=== PATIENT | female | born 1950 | race Caucasian/White ===

== ENCOUNTER 2016-10-16 09:17 | Outpatient (CLI) | payer OTHER | END 2016-10-16 17:28 | disposition home or self-care (01) | LOC: SMA 09:17 | PROVIDERS: ATTEND Family Medicine | DX: Z12.31 Encounter for screening mammogram for malignant neoplasm of breast (principal); M47.892 Other spondylosis, cervical region; M47.894 Other spondylosis, thoracic region | CPT/HCPCS: 72040; 76642; G0202 ==